=== PATIENT | female | born 1990 | race Hispanic/Latino ===

== ENCOUNTER 2019-02-04 11:28 | Inpatient (IN) | payer BC ==
[~2019-02-04] VITALS: Ht 167.6 cm; Wt 95.7 kg
--- OUTSIDE RECORDS SUMMARY | 2019-02-04 11:30 | XMS REPORT ---
Author Author [facility] Address Unknown Phone Unavailable Care Team Providers Care Fire Protection Engineering Technician Name Role Phone Unavailable Unavailable Payers Payer Name Policy Type Policy Number Effective Date Expiration Date Problems This patient has no known problems. Allergies, Adverse Reactions, Alerts Allergy Name Allergy Type Status Severity Reaction(s) Onset Date Inactive Date Treating Clinician Comments No Known Allergies DA Active U 2018-07-31 00:00:00 Medications This patient has no known medications.
[2019-02-04] MEDS ORDERED: LOSARTAN-HCTZ1 EACH PO (11:42)
[2019-02-04] MEDS ORDERED: SODIUM CHLORIDE 0.9% 1000ML 1,000 ML IV STA (12:06)
[2019-02-04] MEDS ORDERED: ONDANSETRON HCL INJ 2MG/ML 2ML 2 MG/ML VIAL IV ONE (12:30)
[2019-02-04] MEDS ORDERED: MORPHINE SULFATE INJ 4 MG/ML INJ 1ML IV ONE (13:00)
[2019-02-04] MEDS ORDERED: PANTOPRAZOLE 40 MG 10ML VIAL IV ONE (13:00)
[2019-02-04 13:14] LABS: BASOPHILS % 0.5 % (0.0-1.0); EOSINOPHILS # (AUTO) 0.1 (0.0-0.4); EOSINOPHILS % 0.6 % (0.0-6.0); HEMATOCRIT 42.9 % (34.2-44.1); HEMOGLOBIN 14.5 g/dL (12.0-16.0); LYMPHOCYTES # (AUTO) 2.6 (1.0-3.2); LYMPHOCYTES % 29.9 % (18.0-39.1); MEAN CORPUSCULAR HEMOGLOBIN 29.7 pg (28-32); MEAN CORPUSCULAR HGB CONC 33.8 g/dL (31-35); MEAN CORPUSCULAR VOLUME 87.7 fL (81-99); MONOCYTES # (AUTO) 0.4 (0.2-0.8); MONOCYTES % 4.9 % (4.4-11.3); NEUTROPHILS # (AUTO) 5.6 (2.1-6.9); NEUTROPHILS % 63.4 % (38.7-80.0); PLATELET COUNT 318 x10e3/uL (140-360); RED BLOOD COUNT 4.89 x10e6/uL (3.6-5.1)
[2019-02-04 13:20] LABS: CLARITY,URINE HAZY (CLEAR); COLOR,URINE YELLOW (YELLOW); KETONES,URINE NEGATIVE (NEGATIVE); LEUKOCYTE ESTERASE ,URINE NEGATIVE (NEGATIVE); NITRITE,URINE NEGATIVE (NEGATIVE); PROTEIN,URINE DIPSTICK NEGATIVE (NEGATIVE); URINE UROBILINOGEN 0.2 mg/dL (0.2 - 1)
[2019-02-04 13:21] LABS: BILIRUBIN,URINE NEGATIVE (NEGATIVE); PREGNANCY TEST, URINE NEGATIVE (NEGATIVE)
[2019-02-04 13:27] LABS: BACTERIA,URINE FEW /HPF; EPITHELIAL CELLS,URINE FEW /LPF; RBC,URINE 0-5 /HPF (0-5); WBC,URINE (MAN) 0-5 /HPF (0-5)
[2019-02-04 13:32] LABS: INR 0.92; PROTHROMBIN TIME 12.9 seconds (11.9-14.5)
[2019-02-04 13:33] LABS: PARTIAL THROMBOPLASTIN TIME 27.2 seconds (23.8-35.5)
[2019-02-04 13:43] LABS: ALANINE AMINOTRANSFERASE 124 IU/L (0-55); ALBUMIN 3.7 g/dL (3.5-5.0); ALKALINE PHOSPHATASE 73 IU/L (40-150); AMYLASE 107 U/L (25-125); ANION GAP 12.9 mmol/L (8-16); BLOOD UREA NITROGEN 7 mg/dL (7-26); BUN/CREATININE RATIO 10 (6-25); CALCIUM 8.4 mg/dL (8.4-10.2); CARBON DIOXIDE 24 mmol/L (22-29); CHLORIDE 110 mmol/L (98-107); CREATININE, SERUM 0.68 mg/dL (0.57-1.11); EST GLOMERULAR FILTRATION RATE > 60 ML/MIN (60-); GLUCOSE 117 mg/dL (74-118); LIPASE 14 U/L (8-78); POTASSIUM 3.9 mmol/L (3.5-5.1); SODIUM 143 mmol/L (136-145)
--- NOTE | 2019-02-04 16:19 | Diagnostic Imaging Report ---
HISTORY: ^ABD PAIN TECHNIQUE: Selected images from limited abdominal ultrasound provided for INTERPRETATION: COMPARISON: None. FINDINGS: Pancreas: Visualized portions are normal. No ductal dilatation. Liver: Measures 13.5 cm in sagittal plane. The echotexture is increased. No mass in the visualized portions. Portal Vein: Measures 1.0 cm. Proper directional flow on spectral Doppler interrogation. Biliary Tree: Normal Gallbladder: Present and is distended. There is a calculus in the gallbladder neck measuring 4 x 6 x 10 mm. It is not mobile. The gallbladder wall measures 4 mm with pericholecystic fluid. Sonographic Baker sign is negative. CBD: 0.4 cm. Right Kidney: 9.9 cm in greatest length. The echotexture is normal. There is is a hypoechoic mass near the hilum measuring 1.7 x 1.8 x 2.0 cm. There is no collecting system dilatation or evidence of obstruction. No renal calculi evident. No adjacent free fluid or fluid collections. Visualized IVC and aorta are normal. There is no free fluid. IMPRESSION: 1. Impacted gallstone in gallbladder neck with gallbladder wall thickening or pericholecystic fluid. Acute cholecystitis is suspected. 2. Steatosis. 3. Hypoechoic mass in the right kidney may be solid. Recommend further characterization with CT or MRI of the kidneys on an outpatient basis. Signed by: Dr. Alka Galeano MD on 02/04/2019 4:15 PM
[2019-02-04] MEDS ORDERED: MORPHINE SULFATE INJ 4 MG/ML INJ 1ML IV PRN (17:00)
[2019-02-04] MEDS ORDERED: ONDANSETRON HCL INJ 2MG/ML 2ML 2 MG/ML VIAL IV PRN (17:00)
[2019-02-04] MEDS ORDERED: SODIUM CHLORIDE 0.9% 50ML 50 ML ONE (18:22)
[2019-02-04] MEDS ORDERED: IOPAMIDOL 370 MG/ML 200 ML INFUS..BTL INJ ONE (18:22)
--- NOTE | 2019-02-04 18:38 | Diagnostic Imaging Report ---
CT urogram INDICATION: Incidental finding right kidney on ultrasound TECHNIQUE: Thin collimation axial images obtained through upper abdomen before and after 100 cc of intravenous contrast administration utilizing a renal protocol. This was followed by thin collimation images of the pelvis. RADIATION DOSE: Total DLP: 2006 mGy*cm Estimated effective dose: (DLP x 0.015 x size factor) mSv CTDIvol has been reviewed. It is below the limits set by the Radiation Protocol Committee (RPC). COMPARISON: Right upper quadrant ultrasound 02/04/2019. Abdomen Findings: Lung Bases: Clear. Visualized portion of the mediastinum is normal. Liver: Steatosis. No mass. Gallbladder: Present. No evidence of gallstone. Trace amount of pericholecystic fluid at the fundus. Biliary tree: No biliary ductal dilatation. Pancreas: Normal in attenuation without mass or ductal dilatation. Spleen: Normal in attenuation and size without mass. Adrenal Glands: No evidence for mass.. Kidneys/ureters: Right: No evidence of calculus. There is round cortical enhancement at the hilum measuring 2.2 x 2.4 cm abutting the renal sinus. This follows renal parenchyma on each series. Findings are suggestive of a hypertrophied column of Shane. The renal collecting system is normal. No ureteral dilatation or intraluminal filling defect. Left: No evidence of calculus. Normal enhancement of the renal parenchyma. No mass. The collecting system is normal. No ureteral dilatation or intraluminal filling defect. Lymph Nodes: No enlarged abdominal or retroperitoneal lymph nodes.. The aorta is normal in diameter. Pelvis Findings: Bowel: Stomach:Normal. Small bowel:Normal in diameter with normal wall thickness. Large bowel:Present. No associated inflammation Appendix: Normal. Bladder: Well distended and is normal. Lymph Nodes: No enlarged abdominal or retroperitoneal lymph nodes.. The uterus is present and contains an intrauterine device. The left ovary measures 4.8 x 3.5 cm in diameter. The right ovary is normal in appearance. Peritoneum/retroperitoneum: No free fluid or fluid collection. Bones: Unremarkable for age. Soft tissues: Unremarkable. IMPRESSION: 1. No evidence of renal mass. Abnormality identified on ultrasound appears to correlate with a hypertrophied column of Shane. No abnormalities of the ureters or bladder. 2. Small amount of nonspecific pericholecystic fluid. No evidence of gallstone or biliary ductal dilatation. 3. Steatosis. 4. Diverticulosis coli. No evidence for bowel obstruction or inflammation. 5. Prominent left ovary suggestive of underlying follicle or cyst. Signed by: Dr. Alka Galeano MD on 02/04/2019 6:35 PM
[2019-02-04] MEDS: SODIUM CHLORIDE 0.9% 1000ML 1,000 ML IV SCH (19:04)
[2019-02-04] MEDS: PIPER-TAZ 3.375 GM 50 ML IV SCH ×2 (19:04→23:57)
[2019-02-04] MEDS ORDERED: ACETAMINOPHEN 325 MG TAB PO PRN (19:15)
[2019-02-04] MEDS ORDERED: HYDRALAZINE HCL 20 MG/ML VIAL IV PRN (19:15)
[2019-02-04] MEDS ORDERED: METOPROLOL TARTRATE INJ 1 MG/ML VIAL IV PRN (19:30)
--- NOTE | 2019-02-04 19:37 | NUR ---
Patient arrived to the unit (to Rm 294) from ED dept for diagnosis of Calculous cholecystitis with obstruction and renal mass. Patient alert and oriented x3. at bedside. Pt ambulatory prn and does not c/o of abdominal pain or nausea at this time. Pt on IVF (NS at 125ml/hr). MD consults to be called tonight. Pt on scheduled IV antibiotics. NPO diet at this time. Call bergeron within reach. Will monitor closely.
--- NOTE | 2019-02-04 20:15 | NUR ---
Spoke with Dr. Moreau (via phone) to inform of new consult re: solid Right renal mass. Original consult was for Dr. Kale Shipman.
--- NOTE | 2019-02-04 20:18 | NUR ---
Spoke with Dr. Nicola Gupta to inform him of new consult re: Cholecystitis. aware and ordered STAT MRCP for pt.
--- NOTE | 2019-02-04 20:29 | NUR ---
Spoke with Dr. Estrada and informed him of new consult re: Cholecystitis. stated he will see pt tomorrow morning.
[2019-02-04 20:30] VITALS: BP 116/76
[2019-02-04] MEDS: METRONIDAZOLE 500MG/NS 100ML 100 ML IV SCH ×2 (21:00→23:00)
--- NOTE | 2019-02-04 22:15 | NUR ---
Patient went down via wheelchair for STAT MRCP. Patient escorted by electronics engineering technician.
[2019-02-04 23:00] VITALS: BP 116/76
--- NOTE | 2019-02-04 23:33 | Diagnostic Imaging Report ---
EXAM: MRI of the abdomen without contrast with MRCP INDICATION: Calculus cholecystitis. COMPARISON: Correlation with ultrasound gallbladder and CT abdomen from the same day.. TECHNIQUE: Multiplanar and multisequence imaging was performed of the abdomen. T1 and T2-weighted images were obtained with and without contrast. T1-weighted in and [id number] M.R.C.P. technique: Multiplanar, multisequence MRCP was performed, with sequences including coronal turbo spin-echo T1-weighted scans, [facility] MRCP scans, coronal spin, coronal MPR 2, SMRCP 3D HR, [facility] MRCP YONUG. Discussion: LOWER THORAX: Unremarkable. HEPATOBILIARY: Diffuse signal dropout on the T1-weighted out of phase scans, consistent with steatosis. Focal fatty sparing about the gallbladder fossa. No focal hepatic lesions. No intra-or extrahepatic biliary ductal dilation. No filling defects or strictures involving the CBD. GALLBLADDER: 4 mm T2 hypointense focus within the gallbladder neck on image 5 series 17 suggestive of a calculus. No wall thickening. No significant pericholecystic fluid. SPLEEN: No splenomegaly. PANCREAS: No focal masses or ductal dilatation. ADRENALS: No adrenal nodules KIDNEYS/URETERS: Kidneys enhance symmetrically. No hydronephrosis. No cystic or solid mass lesions. No stones. GI TRACT: No abnormal distention, wall thickening, or evidence of bowel obstruction. Appendix is normal. LYMPH NODES: No lymphadenopathy. VESSELS: Unremarkable. PERITONEUM / RETROPERITONEUM: No free air or fluid. BONES: Unremarkable. SOFT TISSUES: Unremarkable. 3.9 cm T2 hyperintense cyst in the left lower hemipelvis consistent with a left ovarian follicular cyst.. IMPRESSION: 1. Mild cholelithiasis. No MRI evidence of cholecystitis or choledocholithiasis. No biliary dilatation. 2. Hepatic steatosis. Signed by: Dr. Kumar Pal M.D. on 02/04/2019 11:30 PM
[2019-02-05] VITALS (8 sets, daily range): BP systolic 102–117; BP diastolic 62–77
[2019-02-05] MEDS ORDERED: METRONIDAZOLE 500MG/NS 100ML 100 ML IV SCH (03:00)
[2019-02-05] MEDS: PIPER-TAZ 3.375 GM 50 ML IV SCH ×4 (05:48→23:03)
[2019-02-05 06:15] LABS: BASOPHILS % 0.4 % (0.0-1.0); EOSINOPHILS # (AUTO) 0.1 (0.0-0.4); EOSINOPHILS % 1.4 % (0.0-6.0); HEMATOCRIT 37.9 % (34.2-44.1); HEMOGLOBIN 12.6 g/dL (12.0-16.0); LYMPHOCYTES # (AUTO) 3.2 (1.0-3.2); LYMPHOCYTES % 41.7 % (18.0-39.1); MEAN CORPUSCULAR HEMOGLOBIN 29.4 pg (28-32); MEAN CORPUSCULAR HGB CONC 33.2 g/dL (31-35); MEAN CORPUSCULAR VOLUME 88.3 fL (81-99); MONOCYTES # (AUTO) 0.5 (0.2-0.8); MONOCYTES % 6.1 % (4.4-11.3); NEUTROPHILS # (AUTO) 3.9 (2.1-6.9); NEUTROPHILS % 50.1 % (38.7-80.0); PLATELET COUNT 281 x10e3/uL (140-360); RED BLOOD COUNT 4.29 x10e6/uL (3.6-5.1); RED CELL DISTRIBUTION WIDTH 12.9 % (11.7-14.4)
[2019-02-05 06:38] LABS: ALANINE AMINOTRANSFERASE 83 IU/L (0-55); ALBUMIN 3.1 g/dL (3.5-5.0); ALKALINE PHOSPHATASE 55 IU/L (40-150); AMYLASE 80 U/L (25-125); ANION GAP 10.2 mmol/L (8-16); BLOOD UREA NITROGEN 8 mg/dL (7-26); BUN/CREATININE RATIO 12 (6-25); CARBON DIOXIDE 25 mmol/L (22-29); CHLORIDE 109 mmol/L (98-107); CREATININE, SERUM 0.66 mg/dL (0.57-1.11); EST GLOMERULAR FILTRATION RATE > 60 ML/MIN (60-); GLUCOSE 96 mg/dL (74-118); LIPASE 9 U/L (8-78); POTASSIUM 3.2 mmol/L (3.5-5.1); SODIUM 141 mmol/L (136-145)
[2019-02-05 06:48] LABS: B-TYPE NATRIURETIC PEPTIDE2 32.9 pg/mL (0-100)
--- NOTE | 2019-02-05 07:07 | NUR ---
RECEIVED REPORT FROM NIGHT NURSE, WALKING ROUNDS DONE. PATIENT IS IN STABLE CONDITION. RESPIRATIONS EVEN AND UNLABORED, NO ACUTE DISTRESS NOTED. NO PAIN NOTED AT THIS TIME. CALL LIGHT WITHIN REACH. BED IN THE LOWEST POSITION.
[2019-02-05 07:10] LABS: FREE T4 (FREE THYROXINE) 0.97 ng/dL (0.9-1.8); MAGNESIUM 1.7 MG/DL (1.3-2.1)
[2019-02-05 07:11] LABS: THYROID STIMULATING HORMONE 0.393 uIU/mL (0.350-4.940)
[2019-02-05] MEDS: SODIUM CHLORIDE 0.9% 1000ML 1,000 ML IV SCH ×4 (07:33→19:19)
[2019-02-05] MEDS ORDERED: POTASSIUM CHLORIDE 20 MEQ TAB CR PO NR (08:30)
[2019-02-05] MEDS: OYST-CAL-D 500MG TABLET PO SCH ×2 (09:07→17:07)
[2019-02-05] MEDS: PANTOPRAZOLE 40 MG 10ML VIAL IV SCH (09:07)
--- NOTE | 2019-02-05 13:36 | Consultation ---
DATE OF CONSULTATION: 02/05/2019 HISTORY OF PRESENT ILLNESS: The patient is a 28-year-old female, who presents with complaints of severe epigastric abdominal pain. Says the pain started yesterday, lasted for hours. She has associated nausea and vomiting. She came to the emergency room where evaluation revealed gallstones. She was medicated there and the pain is better at this time. The patient has not had previous symptoms. PAST MEDICAL HISTORY: Significant for hypertension for which she takes losartan, hydrochlorothiazide. PAST SURGICAL HISTORY: She has not had a previous surgery. ALLERGIES: THERE ARE NO KNOWN ALLERGIES. FAMILY HISTORY: Noncontributory. SOCIAL HISTORY: The patient smokes cigarettes about two cigarettes per day. Does not drink alcohol. REVIEW OF SYSTEMS: As stated above. She has had no fever, no weight loss. PHYSICAL EXAMINATION: GENERAL: The patient is awake and alert, in no distress. VITAL SIGNS: Normal. HEENT: Reveals no scleral icterus. NECK: Has no masses. LUNGS: Equal breath sounds, clear bilaterally. CARDIAC: Regular rate and rhythm with no murmur. ABDOMEN: Soft. There is slight epigastric tenderness. There is no mass. There were no signs of peritonitis. There is no organomegaly. EXTREMITIES: There is no edema. Pulses were palpable. NEUROLOGIC: Intact. LABORATORY DATA: White blood cell count is normal. Hemoglobin and hematocrit are normal. Differential was normal. Chemistries revealed elevated AST and ALT. Bilirubin was normal. Lipase is normal. IMAGING STUDIES: The patient was found to have gallstones with a stone in the gallbladder neck. There was also a mass seen in the hilum of the kidney with CT of the abdomen and pelvis was done, which suggested that this was a hypertrophied column of Shane. MRCP was negative for choledocholithiasis. ASSESSMENT: A 28-year-old female with epigastric pain, likely secondary to gallbladder disease with gallstones. She will probably likely benefit from cholecystectomy, which I plan to schedule for tomorrow. Procedure was explained to the patient including risks, benefits, and alternatives. She understands procedure. She has had the opportunity to ask questions. She is aware of the possible need for open surgery. Thank you for asking me to see Ms. Walker. MD ISADORA Parson/SIENA /[id number]
--- NOTE | 2019-02-05 18:52 | NUR ---
REPORT GIVEN TO ONCOMING NURSE, WALKING ROUNDS DONE. PATIENT IS RESTING IN BED, NO ACUTE DISTRESS NOTED. AT BEDSIDE. CALL LIGHT WITHIN REACH. BED IN THE LOWEST POSITION.
[2019-02-06] VITALS (8 sets, daily range): BP systolic 106–144; BP diastolic 58–81
--- NOTE | 2019-02-06 04:49 | Consultation ---
DATE OF CONSULTATION: 02/05/2019 Urology Consultation Note. REASON FOR CONSULTATION: Right renal mass. HISTORY OF PRESENT ILLNESS: Leslie Walker is a 28-year-old woman, who was admitted with abdominal pain. She was found to have cholecystitis. Cholecystectomy is believed to be in the plans. The patient was found to have a right renal mass on imaging and urological consultation was sought. The patient denies previous hematuria, dysuria, urinary tract infections or urolithiasis. Denies urinary incontinence. She has never seen a urologist. PAST MEDICAL AND SURGICAL HISTORY: Hypertension. CURRENT MEDICATIONS: Please refer to the MAR. ALLERGIES: NONE KNOWN. SOCIAL HISTORY: The patient is a homemaker. She denies current smoking, ethanol, and drug use. FAMILY HISTORY: Noncontributory to the active urological problems. REVIEW OF SYSTEMS: Consistent with above history of present illness and past medical history, is otherwise negative for all systems. PHYSICAL EXAMINATION: GENERAL: A healthy-appearing 28-year-old woman lying in bed, in no apparent distress. She is currently afebrile. VITAL SIGNS: Currently stable. ABDOMEN: Soft, nondistended, nontender without costovertebral angle tenderness. Kidneys are not palpable, without hepatosplenomegaly. No obvious evidence of hernia. For the remaining physical examination and systems, please refer to the admission history and physical in the chart. LABORATORY STUDIES: The patient's potassium is decreased at 3.2. Her calcium is low at 8. Her creatinine is normal at 0.66 with white cell count of 7730, hemoglobin 12.6, platelets 281,000. Urinalysis is unremarkable. CT scan of the abdomen and pelvis was done that reveals a 2.2 x 2.4 cm one cortical enhancement at the hilum that the radiologist believes is a column of Shane. There are no stones. There is no hydronephrosis. Left ovary is prominent. Ultrasound showed a hypoechoic mass, which prompted the CT scan. It also showed impacted gallstones in the gallbladder neck with gallbladder wall thickening and pericholecystic fluid. Acute cholecystitis was suspected. ASSESSMENT: 1. Right renal mass consistent with column of Shane. 2. Abdominal pains, which are improved. 3. Cholecystitis. 4. Cholelithiasis. 5. Hypokalemia. 6. Hypocalcemia. PLAN: 1. I defer the management of the abdominal pain and the cholecystitis to the admitting physician and other consultants. 2. The patient needs ongoing urological followup for further imaging in the future. Thank you very much for allowing us in the care of your patient. We will be happy to follow along with you as well as an outpatient. Kale MD KEVEN Shipman/SIENA /[id number]
[2019-02-06] MEDS: PIPER-TAZ 3.375 GM 50 ML IV SCH ×4 (05:08→23:43)
[2019-02-06 06:13] LABS: BASOPHILS % 0.3 % (0.0-1.0); EOSINOPHILS # (AUTO) 0.1 (0.0-0.4); EOSINOPHILS % 1.9 % (0.0-6.0); HEMATOCRIT 35.7 % (34.2-44.1); LYMPHOCYTES # (AUTO) 3.4 (1.0-3.2); LYMPHOCYTES % 49.6 % (18.0-39.1); MEAN CORPUSCULAR HEMOGLOBIN 29.9 pg (28-32); MEAN CORPUSCULAR HGB CONC 33.6 g/dL (31-35); MONOCYTES # (AUTO) 0.4 (0.2-0.8); MONOCYTES % 6.4 % (4.4-11.3); NEUTROPHILS # (AUTO) 2.9 (2.1-6.9); NEUTROPHILS % 41.5 % (38.7-80.0); PLATELET COUNT 256 x10e3/uL (140-360); RED BLOOD COUNT 4.01 x10e6/uL (3.6-5.1); RED CELL DISTRIBUTION WIDTH 12.7 % (11.7-14.4)
[2019-02-06 06:34] LABS: ALANINE AMINOTRANSFERASE 55 IU/L (0-55); ALBUMIN 2.6 g/dL (3.5-5.0); ALKALINE PHOSPHATASE 65 IU/L (40-150); ANION GAP 8.8 mmol/L (8-16); BILIRUBIN,DIRECT 0.3 mg/dL (0.0-0.5); BLOOD UREA NITROGEN 5 mg/dL (7-26); BUN/CREATININE RATIO 7 (6-25); CALCIUM 8.1 mg/dL (8.4-10.2); CARBON DIOXIDE 25 mmol/L (22-29); CHLORIDE 112 mmol/L (98-107); CREATININE, SERUM 0.72 mg/dL (0.57-1.11); EST GLOMERULAR FILTRATION RATE > 60 ML/MIN (60-); GLUCOSE 144 mg/dL (74-118); POTASSIUM 3.8 mmol/L (3.5-5.1); SODIUM 142 mmol/L (136-145)
--- NOTE | 2019-02-06 06:56 | NUR ---
RECEIVED REPORT FROM OFFGOING NURSE. PATIENT IS IN STABLE CONDITION, NO ACUTE DISTRESS NOTED. DENIES PAIN OR DISCOMFORT AT THIS TIME. CALL LIGHT WITHIN REACH. BED IN THE LOWEST POSITION.
[2019-02-06] MEDS: PANTOPRAZOLE 40 MG 10ML VIAL IV SCH (07:22)
--- NOTE | 2019-02-06 08:52 | NUR ---
PATIENT OFF UNIT FOR PROCEDURE.
[2019-02-06] MEDS: OYST-CAL-D 500MG TABLET PO SCH ×2 (09:00→16:30)
[2019-02-06] MEDS ORDERED: BUPIVACAINE HCL 0.5% INJ 30 ML VIAL INJ ONE (10:02)
[2019-02-06] MEDS ORDERED: NICOTINE 7 MG PATCH TOP PRN (10:15)
[2019-02-06] MEDS ORDERED: MORPHINE SULFATE INJ 4 MG/ML INJ 1ML IV PRN ×2 (11:45→12:30)
[2019-02-06] MEDS ORDERED: HYDROCODONE/APAP 5MG-325MG TAB PO PRN ×2 (11:45→12:30)
[2019-02-06] MEDS ORDERED: HYDROMORPHONE 2MG/ML 2 MG/ML ML ONE (12:29)
[2019-02-06] MEDS ORDERED: HYDRALAZINE HCL 20 MG/ML VIAL IV PRN (12:30)
--- NOTE | 2019-02-06 13:02 | NUR ---
PATIENT BACK TO UNIT FROM OR.
[2019-02-06] MEDS: ONDANSETRON HCL INJ 2MG/ML 2ML 2 MG/ML VIAL IV PRN ×2 (16:30→23:53)
[2019-02-06] MEDS: SODIUM CHLORIDE 0.9% 1000ML 1,000 ML IV SCH ×2 (16:30→23:43)
--- NOTE | 2019-02-06 16:32 | Operative Report ---
DATE OF PROCEDURE: 02/06/2019 SURGEON: Niall Estrada MD PREOPERATIVE DIAGNOSES: Acute on chronic cholecystitis, cholelithiasis. POSTOPERATIVE DIAGNOSES: Acute on chronic cholecystitis, cholelithiasis. PROCEDURES: Diagnostic laparoscopy, laparoscopic cholecystectomy. DRIER: None. ANESTHESIA: General. INDICATIONS AND FINDINGS: The patient is a 28-year-old female admitted to the hospital with complaints of epigastric right upper quadrant abdominal pain. Workup revealed gallstones. At surgery, the patient was found to have gallbladder containing at least one stone. Cystic duct was about 3 mm in diameter. Common bile duct was about 6 mm in diameter. Liver had changes of fat infiltration. Stomach and lower abdomen all appeared normal. TECHNIQUE: After adequate general endotracheal anesthesia, the patient in supine position, the abdomen was prepped and draped in sterile fashion with ChloraPrep solution. Skin in the umbilicus was infiltrated with 0.5% Marcaine. Incision was made in the umbilicus, abdominal wall was elevated, and Veress needle was introduced. Pneumoperitoneum was then created. A 10 mm trocar and cannula was then passed through the umbilical wound. Laparoscopic camera was introduced. Initial laparoscopy revealed fatty infiltration of liver. Stomach and lower abdomen appeared normal. A 10 mm trocar and cannula was placed in the epigastrium and two 5 mm trocars and cannulas were placed in right upper quadrant; these were placed under direct vision. Fundus of the gallbladder was grasped, retracted superiorly. Neck of the gallbladder was grasped, retracted laterally. Peritoneum over the neck of the gallbladder was incised. The gallbladder cystic duct junction was dissected free. Cystic artery was also dissected free. The neck of the gallbladder completely dissected free. The cystic artery was divided between hemoclips close to the gallbladder. Cystic duct was also divided between hemoclips with three clips being left on the common bile duct side, posterior branch of cystic artery which was also divided between hemoclips. The gallbladder was dissected free from the liver using scissors and electrocautery. Once it was entirely free, it was placed into an Endopouch and brought out through the epigastric cannula. There was at least one stone palpable. Gallbladder bed was inspected for hemostasis, which was seen to be adequate. It was irrigated with saline, all fluid aspirated, inspected once again for hemostasis, which was seen to be adequate. Instruments and cannulas were removed. Pneumoperitoneum was evacuated. Wounds were then closed. Fascia in the umbilical and epigastric wounds were closed with 0 Vicryl. Skin to all wounds closed with judi. Sterile dressing was applied to each wound. The patient tolerated procedure well. Estimated blood loss was 10 mL. There were no complications. All counts were correct. The patient was taken to the recovery room in satisfactory condition. MD ISADORA Parson/MODL /[id number] cc: Lenard Lewis MD
[2019-02-06] MEDS ORDERED: SEVOFLURANE INHAL SOLN 250 ML PEN BTL ONE (17:50)
[2019-02-06] MEDS ORDERED: PROPOFOL IV EMULSION 10 MG/ML 20 ML VIAL ONE (17:50)
[2019-02-06] MEDS ORDERED: ONDANSETRON HCL INJ 2MG/ML 2ML 2 MG/ML VIAL ONE (17:50)
[2019-02-06] MEDS ORDERED: ROCURONIUM BROMIDE 10 MG/ML 5ML VIAL ONE (17:50)
[2019-02-06] MEDS ORDERED: LIDOCAINE HCL 2% LOCAL INJ 5 ML SDV VIAL INJ ONE (17:50)
[2019-02-06] MEDS ORDERED: DEXAMETHASONE SOD PHOS INJ 4 MG/ML VIAL ONE (17:50)
[2019-02-06] MEDS ORDERED: MIDAZOLAM HCL 2 MG/2 ML VIAL ONE (18:23)
[2019-02-06] MEDS ORDERED: FENTANYL CITRATE/PF 100MCG/2 ML INJ ONE (18:23)
--- NOTE | 2019-02-06 19:15 | NUR ---
REPORT GIVEN TO ONCOMING NURSE, WALKING ROUNDS DONE. PATIENT IS RESTING IN BED, NO ACUTE DISTRESS NOTED. DENIES PAIN OR DISCOMFORT. CALL LIGHT WITHIN REACH. BED IN THE LOWEST POSITION.
[2019-02-07] VITALS: BP 118/68
[2019-02-07 04:00] VITALS: BP 110/58
[2019-02-07] MEDS: PIPER-TAZ 3.375 GM 50 ML IV SCH (05:27)
[2019-02-07 06:02] LABS: BASOPHILS % 0.1 % (0.0-1.0); HEMATOCRIT 37.3 % (34.2-44.1); HEMOGLOBIN 12.4 g/dL (12.0-16.0); LYMPHOCYTES # (AUTO) 2.2 (1.0-3.2); MEAN CORPUSCULAR HEMOGLOBIN 29.2 pg (28-32); MEAN CORPUSCULAR HGB CONC 33.2 g/dL (31-35); MEAN CORPUSCULAR VOLUME 87.8 fL (81-99); MONOCYTES # (AUTO) 0.6 (0.2-0.8); MONOCYTES % 6.2 % (4.4-11.3); NEUTROPHILS # (AUTO) 7.4 (2.1-6.9); NEUTROPHILS % 72.1 % (38.7-80.0); PLATELET COUNT 277 x10e3/uL (140-360); RED BLOOD COUNT 4.25 x10e6/uL (3.6-5.1); RED CELL DISTRIBUTION WIDTH 12.8 % (11.7-14.4)
[2019-02-07 06:49] LABS: ANION GAP 8.8 mmol/L (8-16); BLOOD UREA NITROGEN < 5 mg/dL (7-26); CALCIUM 8.4 mg/dL (8.4-10.2); CARBON DIOXIDE 24 mmol/L (22-29); CHLORIDE 108 mmol/L (98-107); CREATININE, SERUM 0.63 mg/dL (0.57-1.11); EST GLOMERULAR FILTRATION RATE > 60 ML/MIN (60-); GLUCOSE 121 mg/dL (74-118); MAGNESIUM 1.9 MG/DL (1.3-2.1); POTASSIUM 3.8 mmol/L (3.5-5.1); SODIUM 137 mmol/L (136-145)
[2019-02-07 06:50] LABS: BUN/CREATININE RATIO 8 (6-25)
[2019-02-07 08:16] VITALS: BP 111/57
[2019-02-07 08:45] VITALS: BP 111/57
--- NOTE | 2019-02-07 08:45 | NUR ---
Pt received resting in bed. Alert and oriented x4 with saline lock #20 in right ac. Noted 3 trocar sites to abdomen. Oriented to staff and surroundings, encouraged to press call bergeron if help needed. Pure wick applied. Emotional support given. Fall precautions maintained. Will monitor.
[2019-02-07] MEDS: PANTOPRAZOLE 40 MG 10ML VIAL IV SCH (09:49)
[2019-02-07] MEDS: OYST-CAL-D 500MG TABLET PO SCH (09:49)
[2019-02-07] MEDS: SODIUM CHLORIDE 0.9% 1000ML 1,000 ML IV SCH (09:49)
[2019-02-07] MEDS ORDERED: ZOFRAN8 MG PO (11:36)
[2019-02-07] MEDS ORDERED: TYLENOL WITH C1 EACH PO (11:36)
[2019-02-07 11:56] VITALS: BP 121/72
--- NOTE | 2019-02-07 13:43 | NUR ---
Pt given discharge instructions regarding meds, diet, activities, and follow up appointment. Pt verbalized understanding of teaching. Awaiting for continuous pickling line pickler helper
--- NOTE | 2019-02-07 15:15 | NUR ---
Pt left via wheelchair to private car
--- NOTE | 2019-02-08 07:34 | Discharge Summary ---
ADMISSION DIAGNOSES: Cholelithiasis, hypertension, hypokalemia, transaminitis, obesity, and hypocalcemia. DISCHARGE DIAGNOSES: Cholelithiasis, hypertension, hypokalemia, transaminitis, obesity, hypocalcemia, status post lap sean. HISTORY: The patient has a history of hypertension. SURGICAL HISTORY: . FAMILY HISTORY: The patient's mom and grandma had diabetes. SOCIAL HISTORY: The patient admits to occasional alcohol use and smoking 1 to 2 cigarettes per day for 2 years. HOSPITAL COURSE: A 28-year-old female complains of a constant burning epigastric pain that woke her up out of her sleep at 10 a.m. prior to admission. She had associated nausea and vomiting. She denies fever and diarrhea. Pain is improved with IV medications given in the ER and gallstone in the gallbladder neck with gallbladder wall thickening or pericholecystic fluid. Acute cholecystitis is suspected, steatosis. Hypoechoic mass in the right kidney may be solid. CT of the abdomen showed no evidence of renal mass. Abnormality identified on ultrasound appears to correlate with her hypertrophied column of Shane. Small amount of nonspecific pericholecystic fluid, steatosis, diverticulosis coli. MRCP then showed mild cholelithiasis. No MRI evidence of cholecystitis or choledocholithiasis or biliary dilatation. Hepatic steatosis. The patient went to surgery on the day after admission for a lap sean. She tolerated the procedure well. Her diet was advanced. She is passing gas and had a bowel movement prior to discharge. She will follow up with primary care in 1-2 weeks and Surgery as discussed. Vital signs stable, patient afebrile. The patient understands discharge instructions and agrees to plan. Dictated by Pauly Peacock NP MD ESCOBAR Romo/MODL /[id number]
== END 2019-02-07 15:15 | disposition home or self-care (01) | DRG 419 ==
LOC: ER 11:28 → ERHOLD 16:53 → MED/SURG3 19:36
PROVIDERS: ADMIT Internal Medicine; ATTEND Internal Medicine
PROC: 0FT44ZZ Resection of Gallbladder, Percutaneous Endoscopic Approach (ICD-10-PCS; principal; 2019-02-06 11:07)
DX: K80.10 Calculus of gallbladder with chronic cholecystitis without obstruction (principal); E87.6 Hypokalemia; E83.51 Hypocalcemia; N28.89 Other specified disorders of kidney and ureter; I10 Essential (primary) hypertension; E66.9 Obesity, unspecified; Z68.34 Body mass index [BMI] 34.0-34.9, adult; K76.0 Fatty (change of) liver, not elsewhere classified
CPT/HCPCS: 36415; 74178; 74181; 76705; 80048; 80053; 80076; 81001; 81025; 82150; 83036; 83690; 83735; 83880; 84439; 84443; 85025; 85610; 85730; 87086; 88304; 93005; 99284; J0360; J1100; J2001; J2250; J2270; J2405; J2543; J7030; Q9967